=== PATIENT | female | born 1990 | race Caucasian/White ===

== ENCOUNTER → 2017-11-11 09:54 | Outpatient (CLI) | payer OTHER, SELFPAY ==
[2017-11-11 11:05] LABS: Glucose 75GTT - Fasting 80 mg/dL (70-99)
[2017-11-11 11:11] LABS: Cholesterol 123 mg/dL (200); High Density Lipoprotein 66 mg/dL; Triglycerides 80 mg/dL; Very Low Density Lipoprotein 16 mg/dL (5-40)
[2017-11-11 11:24] LABS: Glucose 75GTT - 30 minutes 125 mg/dL (100-160)
[2017-11-11 11:56] LABS: Glucose 75GTT - 60 minutes 143 mg/dL (100-160)
[2017-11-11 12:08] LABS: Insulin 75GTT - 60 min 144.3 mU/L (Not Estab)
[2017-11-11 14:03] LABS: Glucose 75GTT - 120 minutes 150 mg/dL (70-140)
[2017-11-11 14:10] LABS: Insulin 75GTT - 120 min 230.4 mU/L (Not Estab.)
== END ==
PROVIDERS: Visit Provider Obstetrics & Gynecology Reproductive Endocrinology
DX: E28.2 Polycystic ovarian syndrome (principal); E66.09 Other obesity due to excess calories
CPT/HCPCS: 36415; 80061; 82951; 82952; 83525

== ENCOUNTER → 2018-03-17 16:59 | Outpatient (CLI) | payer OTHER, SELFPAY ==
[2018-03-17 16:48] VITALS: BMI 51.2
[2018-03-17 17:31] LABS: Glucose Challenge Gest 1H 50g 116 mg/dL (70-140)
[2018-03-17 17:38] LABS: Absolute Lymphocyte Count 1.42 X10^3/ul (0.83-4.51); Absolute Neutrophil Count 9.1 X10^3/uL (2.0-7.7); Basophil# 0.01 X10^3/uL; Basophil% 0.1 % (0-1); Eosinophil# 0.07 X10^3/uL; Eosinophils% 0.6 % (0-5); Hematocrit 36.2 % (37-47); Hemoglobin 11.7 g/dl (12.0-15.0); Lymphocyte # 1.42 X10^3/ul (4.0); Lymphocyte % 12.6 % (19-41); Mean Corp Hgb Conc 32.3 g/gl (32-36); Mean Corpuscular Hgb 30.6 pg (27.0-32.0); Mean Corpuscular Volume 94.8 fL (81-99); Mean Platelet Vol. 10.6 fl (6.2-12.0); Monocyte# 0.49 X10^3/uL; Monocyte% 4.4 % (0-10); Neutrophil # 9.13 X10^3/uL (2.7-7.7); Neutrophil % 81.2 % (47-70); Platelet Count 202 K/mm3 (150-450); RBC Distribution Width CV 13.2 % (11.6-14.6); RBC Distribution Width SD 45.2 fl (35.1-43.9); Red Blood Count 3.82 M/mm3 (4.2-5.4); White Blood Count 11.2 K/mm3 (4.4-11.0)
[2018-03-17 17:46] LABS: POSITIVE COUNT NO; POSITIVE DIFFERENTIAL NO; POSITIVE MORPHOLOGY NO
== END ==
PROVIDERS: Referring Provider Obstetrics & Gynecology; Visit Provider Obstetrics & Gynecology
DX: Z34.00 Encounter for supervision of normal first pregnancy, unspecified trimester (principal)
CPT/HCPCS: 36415; 82950; 85025

== ENCOUNTER → 2018-04-17 16:46 | Outpatient (CLI) | payer OTHER, SELFPAY ==
[2018-04-03 16:17] VITALS: BMI 51.2
[2018-04-17 16:37] VITALS: BMI 51.2
--- NOTE | 2018-04-17 16:49 | US_ITS ---
HISTORY: growth EXAM/TECHNIQUE: US OB Limited 1 Or More Fetus: Transabdominal and transvaginal images. COMPARISON: None. FINDINGS: # of images incl. paperwork: 42 Single fetus in transverse presentation, head to the maternal right. heart rate 146 bpm. Amnionic fluid volume within normal limits. Largest fluid pocket 2.6 x 6.8 cm. HERI of 12.8. Posterior grade 1 placenta. No previa or abruption. Biometry: Biparietal diameter 8.2 cm, 33 weeks 1 day. Head circumference 30.4 cm, 33 weeks 6 days. Abdominal circumference 30.5 cm, 34 weeks 4 days. Femoral length 6.5 cm, 33 weeks 4 days. Estimated weight 2323 g +/-339 g, 91st percentile. HYUN by this ultrasound 05/30/18, gestational age 33 weeks 6 days. Based on LMP, HYUN 05/23/18 and gestational age 32 weeks 1 day. Femoral length/abdominal circumference ratio 21%, within normal limits. Femoral length/biparietal diameter 79%, within normal limits. Head circumference/abdominal circumference ratio 1.0, within normal limits. Cervix closed and 5.4 cm in length. US/OB Limited With Biometrics IMPRESSION: Single fetus in transverse presentation described in detail above. No acute or concerning findings. at 0430 Reported and signed by: Stef Lane MD Electronically Signed: Stef Lane, at 4:29 EST Tel , Service support ,
== END ==
PROVIDERS: Referring Provider Obstetrics & Gynecology; Visit Provider Obstetrics & Gynecology
DX: O99.210 Obesity complicating pregnancy, unspecified trimester (principal)
CPT/HCPCS: 76816

== ENCOUNTER → 2018-05-15 16:46 | Outpatient (CLI) | payer OTHER, SELFPAY ==
[2018-04-03 16:17] VITALS: BMI 51.2
[2018-05-15 16:06] VITALS: BMI 51.2
--- NOTE | 2018-05-15 16:48 | US_ITS ---
STUDY: SECOND AND THIRD TRIMESTER OBSTETRICAL ULTRASOUND REASON FOR EXAM: Female, 27 years old. Gestational size and age. LMP: September 04, 2017. TECHNIQUE: 1 TECHNICAL QUALITY: Adequate. PRIOR ULTRASOUND: April 17, 2018. FINDINGS: There is a single intrauterine fetus. The fetus is in a breech presentation. There is demonstrated cardiac activity with a heart rate of 1:30 bpm. There is a normal amniotic fluid volume. The largest amniotic fluid pocket measures 5.2 cm. The amniotic fluid index (HERI) is 15.4 by cm. The placenta is posterior in location and is not low lying. There are Grade 2 placental changes. There is an eccentric insertion of the cord along the upper aspect of the placenta. The cervix is obscured. BIOMETRY: BPD: 8.98 cm: 36 weeks, 3 days HC: 33.54 cm: 38 weeks, 3 days AC: 33.42 cm: 37 weeks, 3 days FL: 7.14 cm: 36 weeks, 5 days CI: FL/BPD: 80 FL/HC: FL/AC: 21 HC/AC: 1.00 age by current US: 37 weeks, 2 days. HYUN by current US: June 03, 2018.. Estimated weight: 3131 grams, +/- 457 grams, 78 %. age by prior US: 37 weeks, 6 days. HYUN by prior US: May 30, 2018.. Age by LMP: 36 weeks, 1 days. HYUN by LMP: June 11, 2018.. BIOPHYSICAL PROFILE: Breathing Movements (FBM): 2 Gross Body Movements (GBM): 2 Tone (FT): 2 Amniotic Fluid Volume (AFV): 2 TOTAL SCORE: 8 / 8 US/Biophysical Profile IMPRESSION: 1. Live single intrauterine at 37 weeks, 2 days. HYUN is June 03, 2018. This is 5 days behind expected gestational age by initial ultrasound. 2. EFW of 3131 g. 3. HERI of 15.45 cm. 4. Posterior grade 2 placenta. There is evidence of an eccentric placental insertion of the cord. 5. Breech presentation. 6. Normal biophysical profile of 09/28. Electronically Signed: Peña Bright DO at 11:34 EDT Tel [phone], Service support ,
== END ==
PROVIDERS: Referring Provider Obstetrics & Gynecology; Visit Provider Obstetrics & Gynecology
DX: Z34.90 Encounter for supervision of normal pregnancy, unspecified, unspecified trimester (principal)
CPT/HCPCS: 76816; 76818; 87081

== ENCOUNTER 2018-06-05 04:50 | Inpatient (IN) | payer OTHER, SELFPAY ==
[2018-05-22 16:10] VITALS: BMI 51.2
[2018-05-29 16:16] VITALS: BMI 55.3
[2018-06-05] VITALS (20 sets, daily range): BP systolic 107–152; BP diastolic 55–74; PULSE 70–99; RESP 11–18; TEMP 36.1–37.3; O2SAT 92–100; BMI 55.2
[2018-06-05] MEDS: Lactated Ringers 1,000 ML 999 ML IV (05:30)
[2018-06-05 05:53] LABS: Absolute Lymphocyte Count 1.28 X10^3/ul (0.83-4.51); Absolute Neutrophil Count 6.2 X10^3/uL (2.0-7.7); Basophil# 0.01 X10^3/uL; Basophil% 0.1 % (0-1); Eosinophil# 0.06 X10^3/uL; Eosinophils% 0.7 % (0-5); Hematocrit 34.2 % (37-47); Hemoglobin 11.2 g/dl (12.0-15.0); Lymphocyte # 1.28 X10^3/ul (4.0); Lymphocyte % 15.7 % (19-41); Mean Corp Hgb Conc 32.7 g/gl (32-36); Mean Corpuscular Hgb 29.8 pg (27.0-32.0); Mean Platelet Vol. 10.9 fl (6.2-12.0); Monocyte% 6.2 % (0-10); Neutrophil # 6.22 X10^3/uL (2.7-7.7); Neutrophil % 76.6 % (47-70); Platelet Count 177 K/mm3 (150-450); RBC Distribution Width CV 13.9 % (11.6-14.6); RBC Distribution Width SD 45.5 fl (35.1-43.9); Red Blood Count 3.76 M/mm3 (4.2-5.4); White Blood Count 8.1 K/mm3 (4.4-11.0)
[2018-06-05 05:54] LABS: POSITIVE COUNT NO; POSITIVE DIFFERENTIAL NO; POSITIVE MORPHOLOGY NO
[2018-06-05] MEDS: Lactated Ringers 1,000 ML 150 ML IV (06:30)
[2018-06-05] MEDS: Sodium Citrate/Citric Acid 30 ML UDC PO (07:20)
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
--- NOTE | 2018-06-05 07:28 | OP.PCM_ITS ---
Problem List (1) Breech presentation Status: Acute Qualifiers: Comment: plan LTCS at 39 weeks 06/05 (2) Infertility Status: Acute Comment: [facility] (3) Normal , first Status: Acute Qualifiers: Comment: PRR HYUN 06/11/18 boy Chester Rai (4) Obesity affecting Status: Acute Qualifiers: Comment: q4 week us after 32 weeks and weekly nst after 36 (5) Status: Acute Qualifiers: Comment: Conceived by Clomid, HCG and IUI. Urine culture negative at [facility] 11/17/17- Labs have been OFI. Anatomy US normal Delivery Classification: Scheduled Final HYUN: 06/11/18 Gestational age: 39 Weeks and 2 Days Indications for : Breech Description of Procedure: The patient is a 27-year-old at 39 weeks presented for breech primary C- section. Spinal anesthesia was placed without difficulty. Urbina catheter was placed. The patient was placed in the dorsal supine position with leftward tilt. Patient was prepped and draped in the normal sterile fashion. Pfannenstiel skin incision was made with the scalpel and carried through to the underlying layer of fascia with the scalpel. Fascia was nicked in the midline and the incision extended laterally. The rectus bellies were dissected off superiorly and inferiorly with out complication both sharply and bluntly. The peritoneum was entered digitally. The incision was stretched and a low transverse uterine incision was made with the scalpel. The infant's buttocks was delivered without complication and then the legs were swept anteriorly followed by the anterior and posterior shoulders the head delivered without complication the rest of the infant delivered. The cord was clamped and cut and the infant was handed off to awaiting nurse. The placenta was delivered spontaneously immediately following and was noted to be intact and have a three- vessel cord. The uterus was exteriorized cleared of all clots and debris, and the incision was closed in a double layer closure using #1 Monocryl. The uterus was returned to the maternal abdomen and gutters were cleared of all clots and debris. The ovaries and fallopian tubes were noted to be within normal limits. The peritoneum was closed with 3-0 Monocryl in a running fashion. Fascia was closed with 0 PDS in a running fashion. Subcutaneous tissue was copiously irrigated and the skin was closed with 3-0 Monocryl in a subcuticular fashion. Steri-Strips and Mepilex dressing were applied without complication. Patient was taken to recovery in stable condition. Amniotic Membrane Rupture Type: Artificial Amniotic Fluid Description: Clear Placenta Disposition: [facility] Specimen(s) sent to pathology: none Cord Entanglement: None Nuchal Cord Compression: Without compression Esitmated Blood Loss (ml): 800 Infant Gender: Male Delayed cord clamping: Yes Pre-op Antibiotic Given: Ancef 2 grams IV x1 - 3 grams Pt instructed on risks of surgery: Bleeding, Anesthesia Risks, Infection, Injury to surrounding structure(s) including bowel and bladder Complications: None - Admit VTE Documentation VTE Present on Admission: No VTE Mechan Device Prophylaxis: SCD's
[2018-06-05] MEDS: Oxytocin 30 units/NS 500 ml 30 UNITS/500 ML IV.SOLN 167 UNITS IV (07:51)
--- NOTE | 2018-06-05 10:49 | NURSING ---
Fundas firm, 2 above umbilicus, lochia scant, pt denies pain
--- NOTE | 2018-06-05 11:26 | CPS ---
nurse will reinforce SMI teaching with pt
[2018-06-05] MEDS: Lactated Ringers 1,000 ML 100 ML IV ×3 (11:35→23:30)
[2018-06-05] MEDS: Ondansetron 4 MG/2 ML Vial IV (11:58)
--- NOTE | 2018-06-05 12:00 | NURSING ---
Emesis 100cc x 1, zofran for 4mg SIVP given.
[2018-06-05] MEDS: Ketorolac 30 MG/ML Syringe IV ×2 (13:57→20:45)
[2018-06-05] MEDS: 0.9% Saline Lock 10 ML Syringe IV (13:57)
[2018-06-05] MEDS: Metoclopramide 10 MG/2 ML Vial IV (14:10)
--- NOTE | 2018-06-05 15:06 | NURSING ---
This clinical nursing instructor reviewed the documentation completed by Katey Purdy and it is complete.
[2018-06-05] MEDS: Enoxaparin 40 MG/0.4 ML Syringe SC (20:45)
[2018-06-05] MEDS: Nystatin Powder 15gm Bottle 1 APPLIC TOPICAL (20:45)
[2018-06-06] VITALS (7 sets, daily range): BP systolic 126–135; BP diastolic 55–71; PULSE 80–99; RESP 16–20; TEMP 36.4–36.9; O2SAT 94–98
[2018-06-06] MEDS: Ketorolac 30 MG/ML Syringe IV ×4 (02:31→19:54)
[2018-06-06 05:27] LABS: Hematocrit 28.2 % (37-47); Hemoglobin 9.2 g/dl (12.0-15.0); Mean Corp Hgb Conc 32.6 g/gl (32-36); Mean Corpuscular Hgb 30.1 pg (27.0-32.0); Mean Corpuscular Volume 92.2 fL (81-99); Mean Platelet Vol. 10.1 fl (6.2-12.0); Platelet Count 155 K/mm3 (150-450); RBC Distribution Width CV 14.2 % (11.6-14.6); RBC Distribution Width SD 47.1 fl (35.1-43.9); Red Blood Count 3.06 M/mm3 (4.2-5.4); White Blood Count 8.8 K/mm3 (4.4-11.0)
[2018-06-06 05:28] LABS: Scan Indicated on CBC? Y/N NO
--- NOTE | 2018-06-06 07:38 | PCM.PN.OB ---
Subjective: doing well no complaints pain controlled no CP SOB N V ambulating well tolerating po lochia moderate, going well - Physical Exam General: Alert, Oriented x3 Abdomen: Soft, Non-Distended, - - Minimal tenderness with exam. FF below U Vital Signs Temp Pulse Resp BP Pulse Ox 97.8 F 88 18 126/65 H 95 06/06/18 04:45 06/06/18 06:30 06/06/18 06:30 06/06/18 04:45 06/06/18 06:30 Oxygen Delivery Method Room Air Weight: 331 lb 12.8 oz Body Mass Index (BMI) 55.2 Intake and Output for Last 24 Hours 06/04/18 06/05/18 06/06/18 23:59 23:59 23:59 Intake Total 5472 / 5472 2950 / 2950 Output Total 2049 / 2049 1700 / 1700 Balance 3422 / 3422 1250 / 1250 Laboratory Tests Past 24 Hrs 06/06/18 05:00 WBC 8.8 RBC 3.06 L Hgb 9.2 L Hct 28.2 L MCV 92.2 MCH 30.1 MCHC 32.6 RDW 14.2 RDW Differential 47.1 H Plt Count 155 MPV 10.1 Medical Necessity - Tobacco Use Smoking Status: Never smoker Assessment/Plan All Active Problems (Last Reviewed 05/29/18 @ 16:17 by Chelsi Calix) Breech presentation (Acute) Obesity affecting (Acute) Normal , first (Acute) (Acute) Infertility (Acute) screening encounter (Resolved) s/p LTCS PPD # 1 LTPCS breech 1. routine post care 2. breast feeding- support given 3. rh positive 4. rubella immune
[2018-06-06] MEDS: 0.9% Saline Lock 10 ML Syringe IV ×3 (08:09→19:54)
[2018-06-06] MEDS: Enoxaparin 40 MG/0.4 ML Syringe SC ×2 (10:08→22:05)
[2018-06-06] MEDS: Nystatin Powder 15gm Bottle 1 APPLIC TOPICAL ×2 (12:00→22:04)
[2018-06-07] MEDS: Ketorolac 30 MG/ML Syringe IV (01:56)
[2018-06-07] MEDS: 0.9% Saline Lock 10 ML Syringe IV (01:56)
[2018-06-07 02:01] VITALS: BP 122/55; PULSE 78; RESP 16; TEMP 36.3
[2018-06-07 08:15] VITALS: BP 124/53; PULSE 70; RESP 18; TEMP 36.5; O2SAT 97
[2018-06-07] MEDS: Naproxen 250 MG Tablet PO ×2 (08:29→20:16)
--- NOTE | 2018-06-07 08:38 | PCM.PN.OB ---
Subjective: doing well no complaints pain controlled no CP SOB N V ambulating well tolerating po lochia moderate, going well - Physical Exam General: Alert, Oriented x3 Abdomen: Soft, Non-Distended, - - FF below U. Dressing dry and intact Vital Signs Temp Pulse Resp BP Pulse Ox 97.7 F L 70 18 124/53 H 97 06/07/18 08:15 06/07/18 08:15 06/07/18 08:15 06/07/18 08:15 06/07/18 08:15 Oxygen Delivery Method Room Air Weight: 331 lb 12.8 oz Body Mass Index (BMI) 55.2 Intake and Output for Last 24 Hours 06/05/18 06/06/18 06/07/18 23:59 23:59 23:59 Intake Total 5472 / 5472 2950 / 2950 Output Total 2049 / 2049 2450 / 2450 Balance 3422 / 3422 500 / 500 Medical Necessity - Tobacco Use Smoking Status: Never smoker Assessment/Plan All Active Problems (Last Reviewed 05/29/18 @ 16:17 by Chelsi Calix) Breech presentation (Acute) Obesity affecting (Acute) Normal , first (Acute) (Acute) Infertility (Acute) screening encounter (Resolved) s/p LTCS PPD # 2 1. routine post care 2. breast feeding- support given 3. rh positive 4. rubella immune
[2018-06-07] MEDS: Nystatin Powder 15gm Bottle 1 APPLIC TOPICAL ×2 (10:05→22:29)
[2018-06-07] MEDS: Enoxaparin 40 MG/0.4 ML Syringe SC ×2 (10:05→22:30)
[2018-06-07 14:15] VITALS: BP 128/60; PULSE 83; RESP 18; TEMP 36.6; O2SAT 98
--- NOTE | 2018-06-07 18:28 | NURSING ---
1745 Pump instructions given to parents for their home pump the medela. We discussed using telehealth at home if she would need to meet with us prior to her scheduled appt. Sukhi CARMONA
[2018-06-07 20:59] VITALS: BP 120/54; PULSE 75; RESP 16; TEMP 36.7; O2SAT 97
[2018-06-08 02:26] VITALS: BP 122/47; PULSE 60; RESP 17; TEMP 36.4; O2SAT 96
--- NOTE | 2018-06-08 07:35 | PCM.PN.OB ---
Subjective: doing well no complaints pain controlled no CP SOB N V ambulating well tolerating po lochia moderate, going well - Physical Exam General: Alert, Oriented x3 Abdomen: Soft, Non Tender, Non-Distended, - - FF below U. Dressing dry and intact Vital Signs Temp Pulse Resp BP Pulse Ox 97.5 F L 60 17 122/47 H 96 06/08/18 02:26 06/08/18 02:26 06/08/18 02:26 06/08/18 02:26 06/08/18 02:26 Oxygen Delivery Method Room Air Weight: 331 lb 12.8 oz Body Mass Index (BMI) 55.2 Intake and Output for Last 24 Hours 06/06/18 06/07/18 06/08/18 23:59 23:59 23:59 Intake Total 2950 / 2950 Output Total 2450 / 2450 Balance 500 / 500 Medical Necessity - Tobacco Use Smoking Status: Never smoker Assessment/Plan All Active Problems (Last Reviewed 05/29/18 @ 16:17 by Chelsi Calix) Breech presentation (Acute) Obesity affecting (Acute) Normal , first (Acute) (Acute) Infertility (Acute) screening encounter (Resolved) s/p LTCS PPD # 3 1. routine post care 2. breast feeding- support given 3. rh positive 4. rubella immune 5. home today
--- NOTE | 2018-06-08 07:36 | PCM.DC.SUM ---
Discharge Date and Diagnosis Date of Admission: 06/05/18 Hospital Course and Treatment Operations: - - PC/S for breech presentation. Normal pp course. Summary of Care Provided: The patient is a 27 year old F Patient underwent section with routine recovery, return of normal bowel and bladder function. Ambulating, voiding and tolerating PO. Stable for discharge home POD #3. - Physical Exam Vital Signs Temp Pulse Resp BP Pulse Ox 97.5 F L 60 17 122/47 H 96 06/08/18 02:26 06/08/18 02:26 06/08/18 02:26 06/08/18 02:26 06/08/18 02:26 Oxygen Delivery Method Room Air Weight: 331 lb 12.8 oz Body Mass Index (BMI) 55.2 Intake and Output for Last 24 Hours 06/06/18 06/07/18 06/08/18 23:59 23:59 23:59 Intake Total 2950 / 2950 Output Total 2450 / 2450 Balance 500 / 500 Home Medications: Medications to take at Discharge vitamin #56-iron 35 mg and 5 mg-folic acid 1 mg-dha capsule 1 cap PO DAILY 12/28/17 Primary Care Physician: Care Physician,No Primary [Primary Care Provider] - Medical Necessity - Tobacco Use Smoking Status: Never smoker Meaningful Use Info Meaningful Use Diagnoses (Choose all that apply): None applicable
--- NOTE | 2018-06-08 07:41 | DCINST_ITS ---
Additional Instructions: If you experience any of the following, contact your healthcare provider. * Bleeding that soaks a pad every hour for 2 hours * Fever 100.4 or higher * Unrelieved incision or abdominal pain * Swelling, redness, discharge or bleeding from your incision or episiotomy site * Your incision begins to separate * Problems urinating (including inability to urinate or burning while urinating). * Visual changes * Severe headache * Flu-like symptoms * Pain or redness in one of both of your breasts * Pain, warmth, tenderness or swelling in your legs, especially the calf area * Frequent nausea and vomiting * Symptoms of depression or anxiety If you experience any of the following, call 911 or go to the nearest Emergency Room. * Chest pain * Problems breathing * Seizure activity * Partial or complete paralysis of a body part, slurred speech, weakness or drooping of the face, or a sudden inability to walk or hold your balance Allergies/Adverse Reactions: Allergies No Known Allergies Allergy (Verified 05/29/18 16:16) Medications to take at Discharge vitamin #56-iron 35 mg and 5 mg-folic acid 1 mg-dha capsule 1 cap PO DAILY 12/28/17 Naproxen [Naprosyn] 500 mg PO BID PRN PRN #60 tablet 06/08/18 Oxycodone HCl/Acetaminophen [Percocet 5/325] 1 - 2 tablet PO Q4H PRN PRN 3 Days #15 tablet 06/08/18 The following prescriptions were given: Oxycodone HCl/Acetaminophen [Percocet 5/325] 1 - 2 tablet PO Q4H PRN PRN 3 Days #15 tablet PRN Reason: Pain Naproxen [Naprosyn] 500 mg PO BID PRN PRN #60 tablet PRN Reason: Pain Follow-Up: Call to make an appointment with your doctor for an incision check in 1-2 weeks. You will also need a 6 week post- follow up appointment. Test results from this visit will be discussed in further detail at your follow- up appointment, if applicable. Primary Care Physician: Care Physician,No Primary [Primary Care Provider] -
--- NOTE | 2018-06-08 07:41 | PCM.DCCSEC ---
Additional Instructions: If you experience any of the following, contact your healthcare provider. Bleeding that soaks a pad every hour for 2 hours Fever 100.4 or higher Unrelieved incision or abdominal pain Swelling, redness, discharge or bleeding from your incision or episiotomy site Your incision begins to separate Problems urinating (including inability to urinate or burning while urinating). Visual changes Severe headache Flu-like symptoms Pain or redness in one of both of your breasts Pain, warmth, tenderness or swelling in your legs, especially the calf area Frequent nausea and vomiting Symptoms of depression or anxiety If you experience any of the following, call 911 or go to the nearest Emergency Room. Chest pain Problems breathing Seizure activity Partial or complete paralysis of a body part, slurred speech, weakness or drooping of the face, or a sudden inability to walk or hold your balance Allergies/Adverse Reactions: Allergies No Known Allergies Allergy (Verified 05/29/18 16:16) Medications to take at Discharge vitamin #56-iron 35 mg and 5 mg-folic acid 1 mg-dha capsule 1 cap PO DAILY 12/28/17 Naproxen [Naprosyn] 500 mg PO BID PRN PRN #60 tablet 06/08/18 Oxycodone HCl/Acetaminophen [Percocet 5/325] 1 - 2 tablet PO Q4H PRN PRN 3 Days #15 tablet 06/08/18 The following prescriptions were given: Oxycodone HCl/Acetaminophen [Percocet 5/325] 1 - 2 tablet PO Q4H PRN PRN 3 Days #15 tablet PRN Reason: Pain Naproxen [Naprosyn] 500 mg PO BID PRN PRN #60 tablet PRN Reason: Pain Follow-Up: Call to make an appointment with your doctor for an incision check in 1-2 weeks. You will also need a 6 week post- follow up appointment. Test results from this visit will be discussed in further detail at your follow-up appointment, if applicable. Primary Care Physician: Care Physician,No Primary [Primary Care Provider] -
[2018-06-08] MEDS: Naproxen 250 MG Tablet PO (07:48)
[2018-06-08 08:06] VITALS: BP 138/78; PULSE 71; RESP 16; TEMP 36.3; O2SAT 97
[2018-06-08] MEDS: Enoxaparin 40 MG/0.4 ML Syringe SC (09:40)
[2018-06-08] MEDS: Acetaminophen 500 MG Tablet 1000 MG PO (10:35)
--- NOTE | 2018-06-13 10:37 | NURSING ---
No answer left voicemail for follow up call
== END 2018-06-08 11:35 | disposition home or self-care (01) | DRG 788 ==
PROVIDERS: Admitting Provider Obstetrics & Gynecology; Referring Provider Obstetrics & Gynecology; Visit Provider Obstetrics & Gynecology
PROC: 10D00Z1 Extraction of Products of Conception, Low, Open Approach (ICD-10-PCS; CPT 59514; principal; 2018-06-05 07:15)
DX: O32.1XX0 Maternal care for breech presentation, not applicable or unspecified (principal); O99.214 Obesity complicating childbirth; O69.81X0 Labor and delivery complicated by cord around neck, without compression, not applicable or unspecified; Z3A.39 39 weeks gestation of pregnancy; Z37.0 Single live birth
CPT/HCPCS: 85025; 85027; 86850; 86900; 99218; J7120; A4216; G0378; J2405; J3490

== ENCOUNTER → 2018-07-21 16:44 | Outpatient (CLI) | payer OTHER, SELFPAY ==
[2018-07-21 14:47] VITALS: BMI 51.7
[2018-07-27 08:26] LABS: HPV Reflexed? NOT INDICATED
== END ==
PROVIDERS: Referring Provider Obstetrics & Gynecology; Visit Provider Obstetrics & Gynecology
DX: Z12.4 Encounter for screening for malignant neoplasm of cervix (principal)
CPT/HCPCS: 87624; 88175; G0145

== ENCOUNTER → 2020-04-21 14:19 | Outpatient (CLI) | payer OTHER, SELFPAY ==
[2020-04-21 13:18] VITALS: BMI 50.4
[2020-04-21 14:57] LABS: Absolute Lymphocyte Count 1.53 X10^3/uL (0.83-4.51); Absolute Neutrophil Count 4.9 X10^3/uL (2.0-7.7); Basophil# 0.01 X10^3/uL; Basophil% 0.1 % (0-1); Eosinophil# 0.07 X10^3/uL; Hematocrit 42.7 % (37-47); Hemoglobin 13.6 g/dL (12.0-15.0); Lymphocyte # 1.53 X10^3/ul (4.0); Lymphocyte % 22.3 % (19-41); Mean Corp Hgb Conc 31.9 g/dL (32-36); Mean Corpuscular Volume 94.1 fL (81-99); Mean Platelet Vol. 10.5 fl (6.2-12.0); Monocyte# 0.33 X10^3/uL; Monocyte% 4.8 % (0-10); NRBC Flagged by Analyzer 0 % (0-5); Neutrophil # 4.88 X10^3/uL (2.7-7.7); Neutrophil % 71.2 % (47-70); Platelet Count 250 K/mm3 (150-450); RBC Distribution Width CV 12.3 % (11.6-14.6); RBC Distribution Width SD 42.4 fl (35.1-43.9); Red Blood Count 4.54 M/mm3 (4.2-5.4); White Blood Count 6.9 K/mm3 (4.4-11.0)
[2020-04-21 15:18] LABS: Hemoglobin A1c 5.2 % (3.8-5.6)
[2020-04-21 16:30] LABS: AST(SGOT) 21 U/L (15-37); Alanine Aminotransfer ALT/SGPT 33 U/L (13-56); Albumin, Serum 3.8 g/dL (3.2-5.0); Alkaline Phosphatase 95 U/L (45-117); Anion Gap 6 (5-15); BUN 13 mg/dL (7-18); BUN/Creat Ratio 14.3 RATIO (10-20); Calcium,Total 8.5 mg/dL (8.5-10.1); Chloride 105 mmol/L (98-107); Cholesterol 134 mg/dL (200); Creatinine, Serum 0.91 mg/dL (0.55-1.02); EST Glomerular Filtration Rate 76 mL/min (>60); Est Glom Filt Rate - Afr Amer 92 mL/min (>60); Estradiol 40.5 pg/mL; Follicle Stimulating Hormone 5.7 mIU/mL; Glucose 93 mg/dL (74-106); High Density Lipoprotein 39 mg/dL; Luteinizing Hormone 7.1 mIU/mL; Potassium 3.9 mmol/L (3.5-5.1); Prolactin 6.7 ng/mL; Protein, Total 7.8 g/dL (6.4-8.2); Sodium Level 140 mmol/L (136-145); Thyroid Stim Hormone (TSH) 1.91 uIU/mL (0.358-3.74); Triglycerides 227 mg/dL; Very Low Density Lipoprotein 45 mg/dL (5-40)
[2020-04-26 20:07] LABS: Testosterone, % Free 2.56 % (0.50-2.80); Testosterone, Free 0.44 ng/dL (0.10-0.85); Testosterone, Total 17 ng/dL (8-48)
== END ==
PROVIDERS: Visit Provider Internal Medicine Endocrinology, Diabetes & Metabolism
DX: D64.9 Anemia, unspecified (principal); E28.2 Polycystic ovarian syndrome; E78.1 Pure hyperglyceridemia
CPT/HCPCS: 36415; 80053; 80061; 82627; 82670; 83001; 83002; 83036; 84146; 84402; 84403; 84443; 85025; 82626

== ENCOUNTER → 2020-09-16 09:57 | Outpatient (CLI) | payer OTHER, SELFPAY ==
[2020-04-21 13:18] VITALS: BMI 50.4
[2020-09-16 11:02] LABS: Glucose 75GTT - Fasting 88 mg/dL (70-99)
[2020-09-16 11:05] LABS: Insulin 21.2 mU/L (2.6-37.6)
[2020-09-16 11:56] LABS: Glucose 75GTT - 30 minutes 122 mg/dL (100-160)
[2020-09-16 11:56] LABS: Glucose 75GTT - 60 minutes 127 mg/dL (100-160)
[2020-09-16 13:33] LABS: Glucose 75GTT - 120 minutes 106 mg/dL (70-140)
== END ==
PROVIDERS: Referring Provider Obstetrics & Gynecology Reproductive Endocrinology; Visit Provider Obstetrics & Gynecology Reproductive Endocrinology
DX: E16.8 Other specified disorders of pancreatic internal secretion (principal)
CPT/HCPCS: 36415; 82951; 82952; 83525

== ENCOUNTER 2021-04-03 15:46 | Outpatient (CLI) | payer OTHER, SELFPAY ==
[2021-04-03 17:23] LABS: Absolute Lymphocyte Count 1.51 X10^3/uL (0.83-4.51); Absolute Neutrophil Count 5.1 X10^3/uL (2.0-7.7); Basophil# 0.01 X10^3/uL; Basophil% 0.1 % (0-1); Eosinophil# 0.06 X10^3/uL; Eosinophils% 0.8 % (0-5); Hematocrit 34.6 % (37-47); Hemoglobin 11.2 g/dL (12.0-15.0); Lymphocyte # 1.51 X10^3/ul (0.83-4.51); Lymphocyte % 21.2 % (19-41); Mean Corp Hgb Conc 32.4 g/dL (32-36); Mean Corpuscular Hgb 30.6 pg (27.0-32.0); Mean Corpuscular Volume 94.5 fL (81-99); Monocyte% 5.6 % (0-10); NRBC Flagged by Analyzer 0 % (0-5); Neutrophil # 5.08 X10^3/uL (2.7-7.7); Neutrophil % 71.5 % (47-70); Platelet Count 194 K/mm3 (150-450); RBC Distribution Width CV 12.1 % (11.6-14.6); RBC Distribution Width SD 42.1 fl (35.1-43.9); Red Blood Count 3.66 M/mm3 (4.2-5.4); White Blood Count 7.1 K/mm3 (4.4-11.0)
[2021-04-03 18:30] LABS: Glucose Challenge Gest 1H 50g 122 mg/dL (70-140)
== END 2021-04-03 23:59 | disposition home or self-care (01) ==
LOC: LAB 15:48
PROVIDERS: Visit Provider Obstetrics & Gynecology
DX: O99.210 Obesity complicating pregnancy, unspecified trimester (principal); E66.9 Obesity, unspecified; Z3A.00 Weeks of gestation of pregnancy not specified
CPT/HCPCS: 36415; 82950; 85025

== ENCOUNTER → 2021-07-15 | Outpatient (CLI) | payer OTHER, SELFPAY ==
[2021-07-15 16:53] LABS: Absolute Lymphocyte Count 1.33 X10^3/uL (0.83-4.51); Absolute Neutrophil Count 7.1 X10^3/uL (2.0-7.7); Basophil# 0.02 X10^3/uL; Basophil% 0.2 % (0-1); Eosinophil# 0.09 X10^3/uL; Hematocrit 33.5 % (37-47); Lymphocyte # 1.33 X10^3/ul (0.83-4.51); Lymphocyte % 14.6 % (19-41); Mean Corp Hgb Conc 32.8 g/dL (32-36); Mean Corpuscular Hgb 31.3 pg (27.0-32.0); Mean Corpuscular Volume 95.4 fL (81-99); Mean Platelet Vol. 10.8 fl (6.2-12.0); Monocyte# 0.36 X10^3/uL; NRBC Flagged by Analyzer 0 % (0-5); Neutrophil # 7.09 X10^3/uL (2.7-7.7); Neutrophil % 77.8 % (47-70); Platelet Count 185 K/mm3 (150-450); RBC Distribution Width CV 13.2 % (11.6-14.6); RBC Distribution Width SD 45.4 fl (35.1-43.9); Red Blood Count 3.51 M/mm3 (4.2-5.4); White Blood Count 9.1 K/mm3 (4.4-11.0)
[2021-07-15 17:29] LABS: Glucose Challenge Gest 1H 50g 124 mg/dL (70-140)
== END | disposition home or self-care (01) ==
LOC: LAB 15:53
PROVIDERS: Referring Provider Obstetrics & Gynecology; Visit Provider Obstetrics & Gynecology
DX: O09.92 Supervision of high risk pregnancy, unspecified, second trimester (principal); Z3A.00 Weeks of gestation of pregnancy not specified
CPT/HCPCS: 36415; 82950; 85025

== ENCOUNTER → 2021-09-10 | Outpatient (CLI) | payer OTHER, SELFPAY | END | disposition home or self-care (01) | LOC: LABSPEC 09-11 09:41 | PROVIDERS: Visit Provider Obstetrics & Gynecology | DX: Z34.90 Encounter for supervision of normal pregnancy, unspecified, unspecified trimester (principal) | CPT/HCPCS: 87081 ==

== ENCOUNTER 2021-09-24 05:00 | Inpatient (IN) | payer OTHER, SELFPAY ==
--- NOTE | 2021-09-23 17:36 | HP.PCM_ITS ---
History and Physical Date of Admission: 09/24/21 Intake Vital Signs ? 07/17/2215:25 09/16/2210:34 09/16/2210:35 Height 5 ft 5 in 5 ft 5 in 5 ft 5 in Weight: ? 329 lb ? BMI ? 54.7 ? BP ? 132/82 H ? 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 Precancerous skin lesion (~2008) Surgical History? H/O: Family History? Grandfather DiabetesOther High cholesterol Hypertension Skin cancer Social History? adopted:? No household members:? spouse housing:? house number of children:? 0 current occupational status:? 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 No Smoking Status:? Never smoker second hand exposure:? No alcohol intake:? never details:? Social drinker, Spouse Name: Rai substance use type:? does not use seatbelt use:? always do you feel safe at home:? Yes additional social history:? Rai- Spouse ? Pregancy History ? ? ? 1 ? Elective abortions ? Hx Para ? ? ? 1 ? Spontaneous abortions ? Hx # Term Pregnancies ? Ectopic pregnancies ? Hx # PregnanciesA ? Multiple births ? # of living children ? ? ? 1 Past Pregnancies Del. Date Name GA/Weeks Outcome Route Bth Weight Gen Labor Lgth Anesthesia Del Locatn Provider FOB 06/05/18 Evelyn Simon 39 live - full term 9lb s 2oz Male ? spinal [facility] ? Delivery Date: 06/05/18? Last Updated by: Bernie Lopez ? ? ? 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 Estimated Delivery Date Method Current WG Current Estimate 10/01/21 LMP (Certain) 37w 6d Expected Delivery Route/Plan RLTCS Specific Issue/Plans Covid status: september counseled regarding risk of covid in vs vaccination and declined vaccination Flu vaccine: Tdap vaccine: given Rhogam: na LARC form signed: yes Problem list reviewed and updated with the most current plan of care details and appropriate orders placed.? Relevant counseling for the gestational age provided. Continue routine care and follow up unless otherwise noted in visit notes/problem list details Initial Weight:?315 lb Date -?-?-?-?-?-?-?-?-?-?-?-?- EGA Weight BP Urine Prot -?-?-?-?-?--?-?-?-?-?-?-?- Glucose FHR FuHt Pres Dilation -?-?-?-?-?-?-?-?-?-?-?-?- Effaced St Visit Note 03/20/21-?-?-?-?-?-?-?-?-?-?-?-?- 12w 1d 315 lb(+0 oz) 112/70 -?-?-?-?-?-?-?-?-?-?-?-?- ? 170 ? ? -?-?-?-?-?-?-?-?-?-?-?-?- ? ? SM- no vb cramping 04/13/21-?-?-?-?-?-?-?-?-?-?-?-?- 15w 4d 311 lb(-4 lb) 114/80 Negative -?-?-?-?-?-?-?-?-?-?-?-?- Negative 150 ? ? -?-?-?-?-?-?-?-?-?-?-?-?- ? ? SM- no vb cramping 04/20/21-?-?-?-?-?-?-?-?-?-?-?-?- 16w 4d 312 lb 6 oz(-2 lb 10 oz) 138/64 -?-?-?-?-?-?-?-?-?-?-?-?- ? 161 ? ? -?-?-?-?-?-?-?-?-?-?-?-?- ? ? MH-work in for a fall yesterday, landed on bottom.? No VB or cramping. FHT easily heard 05/20/21-?-?-?-?-?-?-?-?-?-?-?-?- 20w 6d 312 lb 2 oz(-2 lb 14 oz) 122/78 Negative -?-?-?-?-?-?-?-?-?-?-?-?- Negative 160 ? ? -?-?-?-?-?-?-?-?-?-?-?-?- ? ? -brief US to confirm FHT. No movement yet/ant placenta. Has 2 vessel cord and declines further genetic testing.? Growth US with FM is tomorrow. NO VB. 06/15/21-?-?-?-?-?-?-?-?-?-?-?-?- 24w 4d 319 lb(+4 lb) 130/80 Negative -?-?-?-?-?-?-?-?-?-?-?-?- Negative 135 ? ? -?-?-?-?-?-?-?-?-?-?-?-?- ? ? JV- no lof, vaginal bleeding, or dec fm. pt states that her monthly scans were canceled for some reason. will call mfm to reschedule for single umbilical artery. 07/16/21-?-?-?-?-?-?-?-?-?-?-?-?- 29w 0d 326 lb(+11 lb) 138/86 -?-?-?-?-?-?-?-?-?-?-?-?- ? 147 ? ? -?-?-?-?-?-?-?-?-?-?-?-?- ? ? MH-No vB, LOF. Good FM. Tdap, larc.? Start NST at 32 wk 07/30/21-?-?-?-?-?-?-?-?-?-?-?-?- 31w 0d 324 lb(+9 lb) 120/82 Negative -?-?-?-?-?-?-?-?-?-?-?-?- Negative 157 ? ? -?-?-?-?-?-?-?-?-?-?-?-?- ? ? MH-No VB,Lof.? Good FM. Reviewed normal growth recent US.? Yeast rash abdomen/groin. Rx sent 08/10/21-?-?-?-?-?-?-?-?-?-?-?-?- 32w 4d 327 lb 2 oz(+12 lb 2 oz) 138/76 Negative -?-?-?-?-?-?-?-?-?-?-?-?- Negative 160 ? ? -?-?-?-?-?-?-?-?-?-?-?-?- ? ? -Reactive NST.? Some tachycardia-noted as pronounced exceleration with movement. Resolved last 5 min.? SM reviewed. Sched 39 wk CS with JV 08/19/21-?-?-?-?-?-?-?-?-?-?-?-?- 33w 6d 328 lb(+13 lb) 128/81 Negative -?-?-?-?-?-?-?-?-?-?-?-?- Negative 155 ? ? -?-?-?-?-?-?-?-?-?-?-?-?- ? ? JV- nst reactive. larc form signed. has growth scan next week. no complaints. 08/27/21-?-?-?-?-?-?-?-?-?-?-?-?- 35w 0d 328 lb 6 oz(+13 lb 6 oz) 132/76 Negative -?-?-?-?-?-?-?-?-?-?-?-?- Negative 140 ? ? -?-?-?-?-?-?-?-?-?-?-?-?- ? ? SM- no vb lof good fm no regular ctx 09/03/21-?-?-?-?-?-?-?-?-?-?-?-?- 36w 0d 328 lb(+13 lb) 102/68 Negative -?-?-?-?-?-?-?-?-?-?-?-?- Negative 150 ? ? -?-?-?-?-?-?-?-?-?-?-?-?- ? ? MH-NST only reactive 09/10/21-?-?-?-?-?-?-?-?-?-?-?-?- 37w 0d 332 lb 8 oz(+17 lb 8 oz) 156/82664/92887 /77 Negative -?-?-?-?-?-?-?-?-?-?-?-?- Negative 150 39 Breech 0-?-?-?-?-?-?-?-?-?- ?-?-?- ? ? JV- nst reactive, GBS collected. plan for rpt 09/16/21-?-?-?-?-?-?-?-?-?-?-?-?- 37w 6d 329 lb(+14 lb) 132/82 Negative -?-?-?-?-?-?-?-?-?-?-?-?- Negative 140 ? ? -?-?-?-?-?-?-?-?-?-?-?-?- ? ? JV- reactive nst. gbs neg. plan for next week. ACOG First Trimester First Trimester: Discussed Second Trimester Second Trimester: Signs and Symptoms of Labor, Selecting a care provider, Reproductive Life Planning & Contreception, Care Planning, Tobacco Cessation, Depression/Anxiety and Intimate Partner Violence Third Trimester Third Trimester: Pain Management Plans, Labor support person(s), Immediate Larc and Movement Monitoring; Discussed Trial of Labor after Counseling and Discussed Circumcision preference Diagnostics Diagnostics Diagnostics: ?? ?C Glucose 1 Hr 50 gm 124 mg/dL (70-140) ?? ? Hgb 11.0 g/dL (12.0-15.0)? L ?? ? Hct 33.5 % (37-47)? L Details: HIV: Urine Culture: Sequential Screen: NIPT Screen: Office Procedures Non-stress Test Non-Stress Test Indications for Monitoring: Yes Morbid obesity and Yes Two vessel cord Heart Rate Baseline: 140 Heart Rate Variability: moderate Movement: Present Heart Rate Accelerations: Present Decelerations: Absent Contractions: Absent Impression: Yes Reactive Non-Stress Test Results POC Urinalysis 2 Dip? (Clinic) Office Urine Glucose Negative ? ? Last Edit by Lindsey Moore on 09/16/21 11:43 Office Urine Protein Negative ? ? Last Edit by Lindsey Moore on 09/16/21 11:43 Coding Level of Care Code OB Routine Diagnoses Single umbilical artery affecting management of mother in carr , antepartum? O09.899 delivery delivered? O82 Obesity affecting ? O99.212 ? ? ? Trimester: second trimester with history of infertility? O09.02 ? ? ? Trimester: second trimester ? Z3A.37 ? ? ? Weeks of gestation: 37 weeks Supervision of high-risk ? O09.92 ? ? ? Trimester: second trimester CPT Codes Non-Stress Test (66427) Assessment and Plan Assessment and Plan (1) Single umbilical artery affecting management of mother in carr , antepartum: ?Status:?Acute ?Comment: monthly growth scans-Norm growth US on 06/22;07/27. Needs weekly NSTs starting at 32 weeks with growth US every 4 weeks. (2) delivery delivered: ?Status:?Acute ?Comment: prev cs breech.? plan RLTCS 09/24 @ 7:30am/JV (3) Obesity affecting : ?Status:?Acute ?Qualifiers: ?Trimester:?second trimester? Qualified Code(s):?O99.212 - Obesity complicating , second trimester ?Comment: 1 tm GCT. encouraged healthy weight gain.? BMI (4) with history of infertility: ?Status:?Acute ?Qualifiers: ?Trimester:?second trimester? Qualified Code(s):?O09.02 - Supervision of with history of infertility, second trimester ?Comment: saw [facility] IUI. (5) : ?Status:?Acute ?Qualifiers: ?Weeks of gestation:?37 weeks? Qualified Code(s):?Z3A.37 - 37 weeks gestation of ?Comment: GBS negative, MAURICIO [facility]. f/u Anatomy nl, 2 vessel cord noted recommend AFP (6) Supervision of high-risk : ?Status:?Acute ?Qualifiers: ?Trimester:?second trimester? Qualified Code(s):?O09.92 - Supervision of high risk , unspecified, second trimester ?Comment: HYUN 10/04/21 PRR(labs have been OFI'ed from [facility]) PC Evelyn Rai ? ? ? Orders: Orders OB NST Today O09.899 - Supervision of other high risk pregnancies, unspecified trimester ? POC Urinalysis 2 Dip? (Clinic) Today ? ? UPDATE- I have seen the patient and performed any clinically relevant updates to the history and physical exam. Ashly Leary, DO
[2021-09-24] VITALS (33 sets, daily range): BP systolic 102–140; BP diastolic 37–65; PULSE 67–104; RESP 13–18; TEMP 35.6–36.6; O2SAT 92–99; BMI 55.1
[2021-09-24] MEDS: Lactated Ringers 1,000 ML 999 ML IV (06:10)
[2021-09-24] MEDS: Acetaminophen 500 MG Tablet 1000 MG PO ×3 (06:36→18:02)
[2021-09-24 06:47] LABS: Absolute Lymphocyte Count 1.24 X10^3/uL (0.83-4.51); Absolute Neutrophil Count 6.8 X10^3/uL (2.0-7.7); Basophil# 0.01 X10^3/uL; Basophil% 0.1 % (0-1); Eosinophil# 0.05 X10^3/uL; Eosinophils% 0.6 % (0-5); Hematocrit 31.9 % (37-47); Hemoglobin 10.5 g/dL (12.0-15.0); Lymphocyte # 1.24 X10^3/ul (0.83-4.51); Lymphocyte % 14.3 % (19-41); Mean Corp Hgb Conc 32.9 g/dL (32-36); Mean Corpuscular Hgb 30.3 pg (27.0-32.0); Mean Corpuscular Volume 92.2 fL (81-99); Mean Platelet Vol. 11.2 fl (6.2-12.0); Monocyte# 0.53 X10^3/uL; Monocyte% 6.1 % (0-10); NRBC Flagged by Analyzer 0 % (0-5); Neutrophil # 6.76 X10^3/uL (2.7-7.7); Neutrophil % 77.7 % (47-70); Platelet Count 141 K/mm3 (150-450); RBC Distribution Width CV 13.8 % (11.6-14.6); RBC Distribution Width SD 46.4 fl (35.1-43.9); Red Blood Count 3.46 M/mm3 (4.2-5.4); White Blood Count 8.7 K/mm3 (4.4-11.0)
[2021-09-24] MEDS: Lactated Ringers 1,000 ML 150 ML IV (07:10)
--- NOTE | 2021-09-24 07:31 | DCINST_ITS ---
Discharge Instructions Diet Discharge Diet: No restrictions Activity Discharge Activity: May Not Drive (for 2 weeks or while taking narcotic pain medications.), May Shower and May Take a Tub Bath (in 7 days.) May resume sexual activity in: 4-6 weeks Weight Bearing Status: Full weight bearing Lifting Restrictions: 20 pounds Dressing / Incision Call your doctor if your incision/area has: Continuous Slow Oozing, Sudden Increased Bleeding, Increased Pain/ Swelling, Increased Redness and Foul Smelling Discharge Call your doctor if you observe: Fever of 101 or Higher and Using more than 1 pad per hour Suture Line Care: Avoid Pulling/Pushing and Avoid Pinching/Bending Cleanse incision/area with: Soap & Water and Keep Dressing Clean & Dry Follow Up Care Please Follow Up With: Ashly Campbell DO When: Call [phone] to make an appointment for an incision check in 1-2 weeks. Test Results: Test results from this visit will be discussed in further detail at your follow- up appointment, if applicable. Discharge Plan Admission Admit Date/Time: 09/24/21 05:00 Primary Reason for Your Visit: section Attending Provider: Ashly Campbell Primary Care Provider: Layne Coombs Primary Discharge Orders/Prescriptions Prescriptions: New ibuprofen 600 mg tablet 600 mg PO Q6H PRN (Reason: pain) 7 Days Qty: 30 0RF oxycodone-acetaminophen [Percocet] 5-325 mg tablet 1 tab PO Q4H PRN (Reason: pain) 7 Days Qty: 30 0RF Continued PNV #14-wvxw-iwahi acid-omega3 30 mg iron-10 mg iron-1 mg capsule 1 cap PO DAILY metformin 1,000 mg tablet 1,000 mg PO BID nystatin 100,000 unit/gram powder 1 applic topical TID Qty: 30 2RF Referrals / Follow Up: Care Physician,Layne Primary [Primary Care Provider] - Disposition Disposition (needs filled in before D/C Order can be placed): Home, Self Care
[2021-09-24] MEDS: Sodium Citrate/Citric Acid 30 ML UDC PO (07:39)
[2021-09-24] MEDS: Cefazolin 2 GM in 0.9% Normal Saline 100 ML IV (07:41)
--- NOTE | 2021-09-24 08:14 | CYST_PTH ---
PATIENT: MARIAN KUMAR LOC: [facility] U#:[id number] AGE/SX: 31/F ROOM: WP004 RE09/24/[address]: Dr. Ashly Campbell DO : 1990 BED: 1 DIS: 09/25/2021 SPEC #: [id number] RECD: 09/24/21 10:16 STATUS: INDRA JAME #: [id number] MAURO: 09/24/21 08:[address]: Ashly Campbell DEPT: SURGICAL PATHOLOGY RECD BY: Justyna Garcia ENTERED: 09/24/21 11:01 SP TYPE: Cyst OTHR DR: No Primary Care Phys Tissues: CYST Procedures: Surgery Specimen Level III HEADER OPERATION: Uterine cyst, repeat section PRE-OP DIAGNOSIS: Uterine cyst TISSUE SUBMITTED: Tissue uterine cyst MICROSCOPIC DIAGNOSIS Uterine cyst, excision: Consistent with leiomyoma. AM:magdalena 09/25/2021 COMMENT Case has been reviewed in consultation with Dr. Jenkins who concurs with the above diagnosis. IDC:SJ MICROSCOPIC DESCRIPTION Slides are reviewed. GROSS DESCRIPTION Received is one container labeled with the patient's name and not further designated. The specimen consists of a smooth, glistening, ovoid pink-hawkins tissue measuring 5.6 x 4.2 x 3.5 cm. The external surface is inked and the specimen is serially sectioned along its narrow axis to reveal homogenous white, rubbery cut surfaces without areas of cyst formation, necrosis or hemorrhage. Online Banking Specialist sections are submitted in four cassettes. / AM:magdalena 09/24/2021 TC:1 CPT: 21438
[2021-09-24 09:01] LABS: Rubella IgG Reactive (Nonreactive)
[2021-09-24] MEDS: Oxytocin 30 units/NS 500 ml 30 UNITS/500 ML IV.SOLN 167 UNITS IV (09:15)
[2021-09-24] MEDS: Ketorolac 30 MG/ML Syringe IV ×3 (09:33→21:54)
[2021-09-24] MEDS: Senna/Docusate Sodium 1 Tablet PO (09:33)
[2021-09-24 10:14] LABS: Pathology Specimen OB SEE PATHOLOGY REPORT
[2021-09-24] MEDS: oxyCODONE 5 MG Tablet PO (11:33)
[2021-09-24] MEDS: Lactated Ringers 1,000 ML 100 ML IV (11:42)
--- NOTE | 2021-09-24 14:00 | NURSING ---
Report received from Judith CARMONA, taking over pt and care at this time.
[2021-09-24] MEDS: 0.9% Saline Lock 10 ML Syringe IV (21:54)
[2021-09-24] MEDS: Heparin Injection (Vial) 5,000 UNIT/ML VIAL 5000 UNIT SC (21:54)
[2021-09-25] MEDS: Acetaminophen 500 MG Tablet 1000 MG PO ×2 (00:02→08:02)
[2021-09-25] MEDS: Ketorolac 30 MG/ML Syringe IV (04:04)
[2021-09-25] MEDS: 0.9% Saline Lock 10 ML Syringe IV (04:05)
[2021-09-25 04:14] VITALS: BP 113/50; PULSE 77; RESP 18; TEMP 36.2; O2SAT 97
--- NOTE | 2021-09-25 05:44 | PCM.PN.OB ---
Subjective Subjective Patient is laying in bed comfortably without complaints. She states that she slept on an off during the night. Lochia is mild and pain is minimal. Objective Data Objective Data Vital Signs: Vital Signs Temp Pulse Resp BP Pulse Ox O2 Del Method 97.2 F L 77 18 113/50 L 97 Room Air 09/25/21 04:14 09/25/21 04:14 09/25/21 04:14 09/25/21 04:14 09/25/21 04:14 09/25/21 04:14 Oxygen Delivery Method Room Air Weight: 331 lb 5.676 oz Body Mass Index (BMI) 55.1 Intake & Output: Intake and Output for Last 24 Hours 09/23/21 09/24/21 09/25/21 23:59 23:59 23:59 Intake Total 3436.67 / 3436.67 Output Total 800 / 800 400 / 400 Balance 2636.67 / 2636.67 -400 / -400 Lab / Micro Data Result Diagrams: 09/24/21 06:10 Labs: Laboratory Results - last 24 hr 09/24/21 06:10: WBC 8.7, RBC 3.46 L, Hgb 10.5 L, Hct 31.9 L, MCV 92.2, MCH 30.3, MCHC 32.9, RDW Std Deviation 46.4 H, RDW Coeff of Charlene 13.8, Plt Count 141 L, MPV 11.2, Immature Gran % (Auto) 1.200 H, Neut % (Auto) 77.7 H, Lymph % (Auto) 14.3 L, Bulloch % (Auto) 6.1, Eos % (Auto) 0.6, Baso % (Auto) 0.1, Absolute Neuts (auto) 6.8, Absolute Lymphs (auto) 1.24, Nucleated RBC % 0 09/24/21 06:10: Blood Type A POSITIVE, Antibody Screen NEGATIVE 09/24/21 07:35: Rubella IgG Antibody Reactive Micro: Microbiology 09/24/21 06:10 Nasal Secretion SARS-CoV-2 Antigen (Rapid) - Final ROS Constitutional Constitutional: Reports systems reviewed and no addt'l complaints, except as documented Cardiovascular Cardiovascular: Denies chest pain, dizziness, dyspnea or irregular heart rhythm Respiratory/Chest Respiratory/Chest: Denies cough, pain on inspiration or shortness of breath at rest Gastrointestinal Gastrointestinal: Denies abdominal pain, nausea or vomiting Genitourinary Genitourinary: Denies burning urination Musculoskeletal Musculoskeletal: Denies muscle cramps, muscle spasms or muscle weakness Neurologic Neurologic: Denies confusion, dizziness, headache(s) or lack of coordination Psychiatric Psychiatric: Denies anxiety, behavioral changes or depression Physical Exam HEENT normocephalic Resp normal respiratory effort and normal air movement GI soft to palpation, non-tender and non-distended Rectal Exam: other Other Details: Incision is clean, dry, and intact no CVA tenderness Extremity normal to inspection General Extremity: edema bilateral (trace ) Assessment & Plan (1) Status post section: PLAN: s/p LTCS PPD # 1 1. routine post care 2. breast feeding- support given 3. rh positive 4. rubella immune pt wants to go home today if possible
[2021-09-25 06:52] LABS: Hematocrit 30.3 % (37-47); Hemoglobin 10.2 g/dL (12.0-15.0); Mean Corp Hgb Conc 33.7 g/dL (32-36); Mean Corpuscular Hgb 31.4 pg (27.0-32.0); Mean Corpuscular Volume 93.2 fL (81-99); Platelet Count 135 K/mm3 (150-450); RBC Distribution Width CV 13.8 % (11.6-14.6); RBC Distribution Width SD 47.1 fl (35.1-43.9); Red Blood Count 3.25 M/mm3 (4.2-5.4); White Blood Count 8.6 K/mm3 (4.4-11.0)
[2021-09-25 08:07] VITALS: BP 135/67; PULSE 73; RESP 16; TEMP 35.7; O2SAT 96
[2021-09-25] MEDS: oxyCODONE 5 MG Tablet PO (08:17)
[2021-09-25] MEDS: Ibuprofen 600 MG Tablet PO (10:28)
[2021-09-25] MEDS: Heparin Injection (Vial) 5,000 UNIT/ML VIAL 5000 UNIT SC (10:29)
[2021-09-25] MEDS: Senna/Docusate Sodium 1 Tablet PO (10:29)
[2021-09-25 12:30] VITALS: BP 126/71; PULSE 79; RESP 16; TEMP 35.8; O2SAT 97
--- NOTE | 2021-10-13 14:53 | OP.PCM_ITS ---
Assessment & Plan (1) H/O: : (2) Placental abnormality: COMMENT: This baby is a 2 vessel cord (3) Obesity affecting : QUALIFIERS: Trimester: second trimester Qualified Code(s): O99.212 - Obesity complicating , second trimester COMMENT: 1 tm GCT. encouraged healthy weight gain. BMI (4) Single umbilical artery affecting management of mother in carr , antepartum: COMMENT: monthly growth scans-Norm growth US on 06/22;07/27. Needs weekly NSTs starting at 32 weeks with growth US every 4 weeks. Details Operative Information Date of Procedure: 09/23/21 Pre-Operative Diagnosis: 39 weeks, single umbilical artery, prior section, declines Post-Operative Diagnosis: 39 weeks, single umbilical artery, prior section, declines Indications for : Repeat Elective Classification: Scheduled Procedure Type: low transverse computational physicist #1: Gayatri Gupta Type of Anesthesia: Spinal Antibiotic Given: Ancef 3 grams IV x1 Estimated Blood Loss: 400cc Findings Description of Procedure: The patient is a31 y/o @ 39 weeks who presented for repeat . Spinal anesthesia was placed without difficulty. Urbina catheter was placed. The patient was placed in the dorsal supine position with leftward tilt. Patient was prepped and draped in the normal sterile fashion. Pfannenstiel skin incision was made with the scalpel and carried through to the underlying layer of fascia with the scalpel. Fascia was nicked in the midline and the incision extended laterally. The rectus bellies were dissected off superiorly and inferiorly with out complication both sharply and bluntly. The peritoneum was entered digitally. The incision was stretched and a low transverse uterine incision was made with the scalpel. The infant's head was delivered atraumatically followed by the anterior and posterior shoulders without complication the rest of the delivered. The cord was clamped and cut and the was handed off to awaiting nurse. The placenta was delivered spontaneously immediately following and was noted to be intact and have a three- vessel cord. The uterus was exteriorized cleared of all clots and debris, and the incision was closed in a double layer closure using #1 Vicryl and #1 Monocryl. The ovaries and fallopian tubes were noted to be within normal limits. The uterus was returned to the maternal abdomen and gutters were cleared of all clots and debris. The peritoneum was closed with 3-0 Monocryl in a running fashion. Gloves were changed prior to fascial closure. Fascia was closed with 0 PDS in a running fashion. Subcutaneous tissue was copiously irrigated and the skin was closed with 3-0 Monocryl in a subcuticular fashion. Mepilex dressing was applied without complication. Patient was taken to recovery in stable condition. It was discussed with the patient that based on the clinical information obtained during this encounter, combined with her history, at this time I would recommend for future deliveries if further pregnancies are desired. Presentation: Positive for Vertex Amniotic Membrane Rupture Type: Artificial Amniotic Fluid Description: Clear Placenta Disposition: [facility] Cord Vessel Description: 2 Vessels Cord Entanglement: None A Gender: Female (1 minute): 8 (5 minute): 9 Delayed Cord Clamping: Yes Complications Risks of Surgery Discussed w/Patient: Bleeding, Anesthesia Risks, Infection, Need for Future C-Sections and Injury to surrounding structure(s) including bowel and bladder Complications: none Multi Select Codes Urinary/Genital Urinary/Genital CPT Codes: 91725 Delivery [facility]
== END 2021-09-25 13:35 | disposition home or self-care (01) | DRG 788 ==
PROVIDERS: Admitting Provider Obstetrics & Gynecology; Referring Provider Obstetrics & Gynecology; Visit Provider Obstetrics & Gynecology
PROC: 10D00Z1 Extraction of Products of Conception, Low, Open Approach (ICD-10-PCS; CPT 59514; principal; 2021-09-24 07:15)
DX: O76 Abnormality in fetal heart rate and rhythm complicating labor and delivery (principal); O99.214 Obesity complicating childbirth; E66.01 Morbid (severe) obesity due to excess calories; O34.211 Maternal care for low transverse scar from previous cesarean delivery; O43.193 Other malformation of placenta, third trimester; O35.8XX0 Maternal care for other (suspected) fetal abnormality and damage, not applicable or unspecified; Z37.0 Single live birth; Z3A.39 39 weeks gestation of pregnancy; Z28.310 Unvaccinated for COVID-19; Z28.21 Immunization not carried out because of patient refusal; Z86.16 Personal history of COVID-19; Z87.59 Personal history of other complications of pregnancy, childbirth and the puerperium
CPT/HCPCS: 59025; 59050; 85025; 85027; 86762; 86850; 86900; 86901; 87426; 88304; 99218; J7120; A4216; G0378; J2405

== ENCOUNTER → 2021-11-11 | Outpatient (CLI) | payer OTHER, SELFPAY ==
[2021-11-19 16:17] LABS: HPV APTIMA, High Risk Negative (Negative)
== END | disposition home or self-care (01) ==
PROVIDERS: Visit Provider Obstetrics & Gynecology
DX: Z12.4 Encounter for screening for malignant neoplasm of cervix (principal)
CPT/HCPCS: 87624; 88175; G0145

== ENCOUNTER 2021-12-17 15:00 | Outpatient (RCR) | payer OTHER, SELFPAY | END 2021-12-21 23:59 | LOC: NS 15:00 | PROVIDERS: Referring Provider Obstetrics & Gynecology; Visit Provider Obstetrics & Gynecology | DX: Z71.3 Dietary counseling and surveillance (principal); E66.9 Obesity, unspecified | CPT/HCPCS: 97802; 97803 ==

== ENCOUNTER 2022-01-13 16:00 | Outpatient (RCR) | payer OTHER, SELFPAY | END 2022-01-20 23:59 | LOC: NS 16:00 | PROVIDERS: Referring Provider Obstetrics & Gynecology; Visit Provider Obstetrics & Gynecology | DX: Z71.3 Dietary counseling and surveillance (principal); E66.9 Obesity, unspecified; Z68.43 Body mass index [BMI] 50.0-59.9, adult | CPT/HCPCS: 97803 ==

== ENCOUNTER 2022-03-16 09:13 | Outpatient (RCR) | payer OTHER, SELFPAY | END 2022-03-23 23:59 | LOC: NS 09:13 | PROVIDERS: Referring Provider Obstetrics & Gynecology; Visit Provider Obstetrics & Gynecology | DX: Z71.3 Dietary counseling and surveillance (principal); E66.9 Obesity, unspecified; Z68.43 Body mass index [BMI] 50.0-59.9, adult | CPT/HCPCS: 97803 ==

== ENCOUNTER → 2023-07-29 | Outpatient (CLI) | payer OTHER, SELFPAY ==
[2023-07-29 08:50] LABS: Absolute Lymphocyte Count 1.47 X10^3/uL (0.83-4.51); Absolute Neutrophil Count 4.6 X10^3/uL (2.0-7.7); Basophil# 0.01 X10^3/uL; Basophil% 0.1 % (0-1); Eosinophil# 0.09 X10^3/uL; Eosinophils% 1.3 % (0-5); Hematocrit 41.6 % (37-47); Hemoglobin 13.3 g/dL (12.0-15.0); Lymphocyte # 1.47 X10^3/ul (0.83-4.51); Mean Corpuscular Volume 93.7 fL (81-99); Mean Platelet Vol. 10.9 fl (6.2-12.0); Monocyte# 0.43 X10^3/uL; Monocyte% 6.4 % (0-10); NRBC Flagged by Analyzer 0 % (0-5); Neutrophil # 4.64 X10^3/uL (2.7-7.7); Neutrophil % 69.5 % (47-70); Platelet Count 218 K/mm3 (150-450); RBC Distribution Width CV 12.5 % (11.6-14.6); RBC Distribution Width SD 42.5 fl (35.1-43.9); Red Blood Count 4.44 M/mm3 (4.2-5.4); White Blood Count 6.7 K/mm3 (4.4-11.0)
[2023-07-29 09:21] LABS: Vitamin D,25 Hydroxy 24.1 ng/mL
[2023-07-29 09:27] LABS: Hemoglobin A1c 5.3 % (3.8-5.6)
[2023-07-29 09:31] LABS: ALB/GLOB Ratio 0.9 RATIO (0.9-2.4); AST(SGOT) 23 U/L (15-37); Alanine Aminotransfer ALT/SGPT 32 U/L (13-56); Albumin, Serum 3.5 g/dL (3.2-5.0); Alkaline Phosphatase 89 U/L (45-117); Anion Gap 8 (5-15); BUN 15 mg/dL (7-18); BUN/Creat Ratio 18.5 RATIO (10-20); Calcium,Total 8.7 mg/dL (8.5-10.1); Chloride 107 mmol/L (98-107); Cholesterol 131 mg/dL (200); Creatinine, Serum 0.81 mg/dL (0.55-1.02); EST Glomerular Filtration Rate 85 mL/min (>60); Est Glom Filt Rate - Afr Amer 103 mL/min (>60); Globulin 3.9 g/dL (2.2-4.2); Glucose 108 mg/dL (74-106); High Density Lipoprotein 47 mg/dL; Potassium 3.8 mmol/L (3.5-5.1); Protein, Total 7.4 g/dL (6.4-8.2); Sodium Level 140 mmol/L (136-145); Triglycerides 66 mg/dL; Very Low Density Lipoprotein 13 mg/dL (5-40)
== END | disposition home or self-care (01) ==
LOC: LAB 07:14
PROVIDERS: Referring Provider Obstetrics & Gynecology; Visit Provider Obstetrics & Gynecology
DX: E28.2 Polycystic ovarian syndrome (principal); E66.01 Morbid (severe) obesity due to excess calories; Z68.43 Body mass index [BMI] 50.0-59.9, adult
CPT/HCPCS: 36415; 80053; 80061; 82306; 83036; 84443; 85025

== ENCOUNTER → 2023-08-02 | Outpatient (CLI) | payer OTHER, SELFPAY ==
--- NOTE | 2023-08-02 11:49 | EKG12_ITS ---
Test Reason : OBESITY Blood Pressure : / mmHG Vent. Rate : 074 BPM Atrial Rate : 074 BPM P-R Int : 132 ms QRS Dur : 086 ms QT Int : 376 ms P-R-T Axes : 005 014 018 degrees QTc Int : 417 ms Normal sinus rhythm Normal ECG Confirmed by Piop Faulkner ([id number]), news copy editor LORA MINER ([id number]) on 08/03/2023 5:54:35 AM Referred By: Ashly Campbell Confirmed By:Pipo Faulkner
== END | disposition home or self-care (01) ==
LOC: PSN 11:48
PROVIDERS: Referring Provider Obstetrics & Gynecology; Visit Provider Obstetrics & Gynecology
DX: E66.01 Morbid (severe) obesity due to excess calories (principal); Z68.43 Body mass index [BMI] 50.0-59.9, adult
CPT/HCPCS: 93005

== ENCOUNTER 2024-04-25 07:45 | Outpatient (RCR) | payer OTHER, SELFPAY | END 2024-05-21 23:59 | LOC: NS 07:45 | PROVIDERS: Referring Provider Nurse Practitioner Family; Visit Provider Nurse Practitioner Family | DX: Z71.3 Dietary counseling and surveillance (principal); E66.01 Morbid (severe) obesity due to excess calories; Z68.43 Body mass index [BMI] 50.0-59.9, adult; E28.2 Polycystic ovarian syndrome | CPT/HCPCS: 97802 ==

== ENCOUNTER → 2024-09-19 | Outpatient (CLI) | payer OTHER, SELFPAY ==
[2024-09-19 11:26] LABS: Hematocrit 42.0 % (37-47); Hemoglobin 14.1 g/dL (12.0-15.0); Immature Granulocytes Count 0.030 X10^3/uL (0.0-0.0); Mean Corp Hgb Conc 33.6 g/dL (32-36); Mean Corpuscular Volume 91.9 fL (81-99); Mean Platelet Vol. 10.4 fl (6.2-12.0); NRBC Flagged by Analyzer 0 % (0-5); Platelet Count 213 K/mm3 (150-450); RBC Distribution Width CV 12.5 % (11.6-14.6); RBC Distribution Width SD 41.5 fl (35.1-43.9); Red Blood Count 4.57 M/mm3 (4.2-5.4); White Blood Count 6.2 K/mm3 (4.4-11.0)
[2024-09-19 12:18] LABS: AST(SGOT) 23 U/L (<=31); Alanine Aminotransfer ALT/SGPT 23 U/L (<=34); Albumin, Serum 4.4 g/dL (3.5-5.0); Alkaline Phosphatase 86 U/L (35-104); Anion Gap 11 (5-15); BUN 16 mg/dL (4-19); BUN/Creat Ratio 19.0 RATIO (10-20); Calcium,Total 9.5 mg/dL (7.6-11.0); Carbon Dioxide 25.1 mmol/L (21.0-32.0); Chloride 103 mmol/L (98-108); Globulin 3.0 g/dL (2.2-4.2); Glucose 90 mg/dL (70-99); Potassium 4.3 mmol/L (3.3-5.1); Vitamin D,25 Hydroxy 46.7 ng/mL (30-100)
== END | disposition home or self-care (01) ==
LOC: LAB 10:30
PROVIDERS: PCP Internal Medicine; Referring Provider Internal Medicine; Visit Provider Internal Medicine
DX: R73.03 Prediabetes (principal); E55.9 Vitamin D deficiency, unspecified
CPT/HCPCS: 36415; 80053; 82306; 83036; 85025

== ENCOUNTER → 2024-12-27 | Outpatient (CLI) | payer OTHER, SELFPAY ==
[2024-12-27 13:23] LABS: hCG Titer Quant., Serum < 1 mIU/mL (<9 non-preg)
== END | disposition home or self-care (01) ==
PROVIDERS: PCP Internal Medicine; Visit Provider Nurse Practitioner Family
DX: Z51.81 Encounter for therapeutic drug level monitoring (principal)
CPT/HCPCS: 36415; 84702